=== PATIENT | male | born 1960 | race Caucasian/White ===

== ENCOUNTER 2020-04-07 08:03 | Emergency (ER) | payer BC ==
[~2020-04-07] VITALS: Ht 185.4 cm; Wt 102.5 kg
--- OUTSIDE RECORDS SUMMARY | 2020-04-07 08:10 | XMS REPORT | Continuity of Care Document ---
Author Author [email or web address], LANDRY Allen Organization [email or web address] Address Unknown Phone Unavailable Care Team Providers Care Returned Goods Inspector Name Role Phone [employer] Unavailable Un available Problems Problem Status Onset Date Classification Date Reported Comments Source Calculus of kidney 12/24/2017 07/06/2018 [facility] DX: CALCULUS OF KIDNEY Active 12/11/2017 [facility] KIDNEY STONE, ACQUIRED HYDRONEPHROSIS W/ Active 11/29/2017 [facility] ABD PAIN Active 11/28/2017 [facility] KIDNEY STONE Active 11/28/2017 [facility] Small kidney, unilateral 07/06/2018 [facility] Hypertensive disorder, systemic arterial (disorder) Resolved Problem 07/24/2018 [facility] Simple obesity (disorder) Acti ve Problem 06/2018 [facility] Active [facility] HYDRONEPHROSIS WITH URETEROPELVIC JUNCTI Active [facility] ACUTE KIDNEY FAILURE, UNSPECIFIED Active [facility] Medications Medication Details Route Status Patient Instructions Ordering Provider Order Date Source Ketorolac Tromethamine 10 MG Oral Tablet 10 mg = 1 tab, PO, Q6H, X 5 day, # 20 tab, 0 Refill(s), Pharmacy: [facility]/pharmacy #[id number] No Longer Active 12/03/2017 [facility] Ketorolac Tromethamine 10 MG Oral Tablet 10 mg = 1 tab, PO, Q6H, X 5 day, # 20 tab, 0 Refill(s), Pharmacy: [facility]/pharmacy #[id number] Active 11/30/2017 [facility] tamsulosin 0.4 mg oral capsule 0.4 mg = 1 cap, PO, Daily, # 30 cap, 0 Refill(s), Pharmacy: [facility]/pharmacy #[id number] Active 11/30/2017 [facility] ketOROLAC 15 mg/mL injectable solution 4 days. No Longer Active 11/29/2017 [facility] Zofran Notes: (Same as: Zofran) No Longer Active 11/29/2017 [facility] Flomax Notes: (Same As: Flomax ) "Do Not Crush" No Longer Active 11/29/2017 [facility] Sodium Chloride 0.9% IV 1,000 mL 1,000 mL, Rate: 150 ml/hr, Infuse over: 6.7 hr, Route: IV, Dosing Weight 108.636 kg, Total Volume: 1,000, Start date: 11/29/17 1:23:00 CDT, Duration: 30 day, Stop date: 12/29/17 1:22:00 CDT, 2.38, m2 No Longe r Active 11/29/2017 [facility] Saline Flush 0.9% Notes: (Same as: BD Posiflush) No Longer Active 11/29/2017 [facility] Acetaminophen 325 MG / Hydrocodone Awais trate 5 MG Oral Tablet [[place] 5/325] Notes: (Same as: [place] 325/5) Do not ex ceed 4gm/day of acetaminophen. No Longer Activ e 11/29/2017 [facility] Morphine Notes: (Same as:MORPh ine Sulfate) Inactive 11/29/2017 [facility] Morphine 4 mg, Route: IVP, ONC E, Dosing Weight 109.091, kg, Priority: STAT, Start date: 11/28/17 23:00:00 CDT, Stop date: 11/28/17 23:00:00 CDT Inactive 11/29/2017 [facility] atorvastatin 20 mg oral tablet 20 mg = 1 tab, PO, Daily, 0 Refill(s) Active 11/29/2017 [facility] Sodium Chloride 0.9% (Bolus) IV 1,000 mL, 1000 ml/hr, Infuse Over: 1 hr, Route: IV, 1,000, Drug form: INJ, ONCE, Priority: STAT, Dosing Weight 109.091 kg, Start date: 11/28/17 19:37:00 CDT, Stop date: 11/28/17 19:37:00 CDT Inactive 11/29/2017 [facility] Saline Flush 0.9% Notes: (Same as: BD Posiflush) No Longer Active 11/29/2017 [facility] Morphine Notes: (Same as:MORPh ine Sulfate) Inactive 11/29/2017 [facility] Ondansetron Notes: (Same as: Prisca more) MEDICATION WASTE Product Size: 4 mg Product Wasted: ___ mg Inactive 11/29/2017 [facility] Ramipril 5 mg, PO, QPM, 0 Refi ll(s) Active 11/28/2017 [facility] Allergies, Adverse Reactions, Alerts No Known Medication Allergies Immunizations No Data Provided for This Section Results Order Name Results Value Reference Range Date Interpretation Comments Source URINE AND STOOL POC UA Color Yellow *NA* (01/04/18 2:02 PM) Yellow 01/04/2018 [facility] URINE AND STOOL POC UA Turbidity Clear *NA* (01/04/18 2:02 PM) Clear 01/04/2018 [facility] URINE AND STOOL POC UA SG 1.025 <=1.030 01/04/2018 [facility] URINE AND STOOL POC UA pH 5.5 5.0 - 8.0 01/04/2018 [facility] URINE AND STOOL POC UA Ket Negative mg/dL Negative mg/dL 01/04/2018 [facility] URINE AND STOOL POC UA Bili Negative *NA* (01/04/18 2:02 PM) Negative 01/04/2018 [facility] URINE AND STOOL POC UA Bld Trace *NA* (01/04/18 2:02 PM) Negative 01/04/2018 [facility] URINE AND STOOL POC UA Uro 0.2 0.1 - 1.0 01/04/2018 [facility] URINE AND STOOL POC UA Nit Negative *NA* (01/04/18 2:02 PM) Negative 01/04/2018 [facility] URINE AND STOOL POC UA LeukEst Small *ABN* (01/04/18 2:02 PM) Negative 01/04/2018 [facility] URINE AND STOOL POC UA Prot Negative mg/dL Negative mg/dL 01/04/2018 [facility] URINE AND STOOL POC UA Glu Negative mg/dL Negative mg/dL 01/04/2018 [facility] ELECTROLYTES AGAP 8.8 10.0 - 20.0 11/29/2017 [facility] ELECTROLYTES eGFR 62 11/29/2017 Result Comment: The eGFR is calculated using the CKD-EPI formula. In most young, healthy individuals the eGFR will be >90 mL/min/1.73m2. The eGFR declines with age. An eGFR of 60-89 may be normal in some populations, particularly the elderly, for whom the CKD-EPI formula has not been extensively validated. Use of the eGFR is not recommended in the following populations:

Individuals with unstable creatinine concentrations, including patients and those with serious co-morbid conditions.

Patients with extremes in muscle mass or diet.

The data above are obtained from the National Kidney Disease Education Program (NKDEP) which additionally recommends that when the eGFR is used in patients with extremes of body mass index for purposes of drug dosing, the eGFR should be multiplied by the estimated BMI. [facility] ELECTROLYTES Glucose Lvl 109 70 - 99 11/29/2017 [facility] ELECTROLYTES Chloride Lvl 105 95 - 109 11/29/2017 [facility] ELECTROLYTES Potassium Lvl 3.8 3.5 - 5.1 11/29/2017 [facility] ELECTROLYTES Creatinine Lvl 1.2 6 0.50 - 1.40 11/29/2017 [facility] ELECTROLYTES BUN 15 7 - 22 11/29/2017 [facility] ELECTROLYTES Sodium Lvl 138 135 - 145 11/29/2017 [facility] ELECTROLYTES Calcium Lvl 8.3 8.5 - 10.5 11/29/2017 [facility] ELECTROLYTES CO2 28 24 - 32 11/29/2017 [facility] Lymphocytes 10.4 20.0 - 40.0 11/29/2017 [facility] HEMATOLOGY Segs 79.8 45.0 - 75.0 11/29/2017 [facility] HEMATOLOGY Eosinophils 0.5 0.0 - 4.0 11/29/2017 [facility] Monocytes 9.0 2.0 - 12.0 11/29/2017 [facility] Monocytes # 0.9 0.0 - 0.8 11/29/2017 [facility] Lymphocytes # 1.0 1.0 - 5.5 11/29/2017 [facility] Segs-Bands # 8.0 1.5 - 8.1 11/29/2017 [facility] HEMATOLOGY Basophils 0.3 0.0 - 1.0 11/29/2017 [facility] Eosinophils # 0.1 0.0 - 0.5 11/29/2017 [facility] MCH 31.1 27.0 - 31.0 11/29/2017 [facility] RDW 13.8 11.5 - 14.5 11/29/2017 [facility] MCHC 34.7 32.0 - 36.0 11/29/2017 [facility] MPV 8.0 7.4 - 10.4 11/29/2017 [facility] Platelet 204 133 - 450 11/29/2017 [facility] RBC 4.46 4.70 - 6.10 11/29/2017 [facility] HEMATOLOGY MCV 89.4 80.0 - 94.0 11/29/2017 [facility] HEMATOLOGY Hct 39.9 42.0 - 54.0 11/29/2017 [facility] HEMATOLOGY Hgb 13.9 14.0 - 18.0 11/29/2017 [facility] HEMATOLOGY WBC 10.1 3.7 - 10.4 11/29/2017 [facility] URINE AND STOOL UA WBC <1 0 - 5 11/29/2017 [facility] URINE AND STOOL UA RBC 1 0 - 2 11/29/2017 [facility] URINE AND STOOL UA Leuk Est Negative (11/28/17 8:12 PM) Negative 11/29/2017 [facility] URINE AND STOOL UA Urobilinogen <=1.0 mg/dL 0.1 - 1.0 11/29/2017 [facility] URINE AND STOOL UA Sq Epi None Seen 11/29/2017 [facility] URINE AND STOOL UA Color Yellow *NA* (11/28/17 8:12 PM) Yellow 11/29/2017 [facility] URINE AND STOOL UA Glucose Negative mg/dL Negative mg/dL 11/29/2017 [facility] URINE AND STOOL UA Blood Negative (11/28/17 8:12 PM) Negative 11/29/2017 [facility] URINE AND STOOL UA Nitrite Negative (11/28/17 8:12 PM) Negative 11/29/2017 [facility] URINE AND STOOL UA Turbidity Clear (11/28/17 8:12 PM) Clear 11/29/2017 [facility] URINE AND STOOL UA Spec Grav 1.026 <=1.030 11/29/2017 [facility] URINE AND STOOL UA pH 5.0 5.0 - 8.0 11/29/2017 [facility] URINE AND STOOL UA Protein Negative mg/dL Negative mg/dL 11/29/2017 [facility] URINE AND STOOL UA Ketones Negative mg/dL Negative mg/dL 11/29/2017 [facility] URINE AND STOOL UA Bili Negative *NA* (11/28/17 8:12 PM) Negative 11/29/2017 [facility] CHEM PANEL Lipase Lvl 114 73 - 393 11/29/2017 [facility] ELECTROLYTES AGAP 13.2 10.0 - 20.0 11/29/2017 [facility] ELECTROLYTES B/C Ratio 10 6 - 25 11/29/2017 [facility] ELECTROLYTES Globulin 3.9 2.7 - 4.2 11/29/2017 [facility] ELECTROLYTES A/G Ratio 1.1 0.7 - 1.6 11/29/2017 [facility] ELECTROLYTES eGFR 49 11/29/2017 Result Comment: The eGFR is calculated using the CKD-EPI formula. In most young, healthy individuals the eGFR will be >90 mL/min/1.73m2. The eGFR declines with age. An eGFR of 60-89 may be normal in some populations, particularly the elderly, for whom the CKD-EPI formula has not been extensively validated. Use of the eGFR is not recommended in the following populations:

Individuals with unstable creatinine concentrations, including patients and those with serious co-morbid conditions.

Patients with extremes in muscle mass or diet.

The data above are obtained from the National Kidney Disease Education Program (NKDEP) which additionally recommends that when the eGFR is used in patients with extremes of body mass index for purposes of drug dosing, the eGFR should be multiplied by the estimated BMI. [facility] ELECTROLYTES Bili Total 0.5 0.2 - 1.3 11/29/2017 [facility] ELECTROLYTES Total Protein 8.1 6.4 - 8.4 11/29/2017 [facility] ELECTROLYTES Albumin Lvl 4.2 3.5 - 5.0 11/29/2017 [facility] ELECTROLYTES Sodium Lvl 137 135 - 145 11/29/2017 [facility] ELECTROLYTES Potassium Lvl 4.2 3.5 - 5.1 11/29/2017 [facility] ELECTROLYTES Alk Phos 58 39 - 136 11/29/2017 [facility] ELECTROLYTES Creatinine Lvl 1.5 4 0.50 - 1.40 11/29/2017 [facility] ELECTROLYTES ALT 35 0 - 65 11/29/2017 [facility] ELECTROLYTES AST 23 0 - 37 11/29/2017 [facility] ELECTROLYTES CO2 25 24 - 32 11/29/2017 [facility] ELECTROLYTES Calcium Lvl 8.9 8.5 - 10.5 11/29/2017 [facility] ELECTROLYTES Chloride Lvl 103 95 - 109 11/29/2017 [facility] ELECTROLYTES BUN 16 7 - 22 11/29/2017 [facility] ELECTROLYTES Glucose Lvl 108 70 - 99 11/29/2017 [facility] HEMATOLOGY RBC 4.99 4.70 - 6.10 11/29/2017 [facility] HEMATOLOGY Hgb 15.4 14.0 - 18.0 11/29/2017 [facility] HEMATOLOGY Hct 44.8 42.0 - 54.0 11/29/2017 [facility] MCV 89.9 80.0 - 94.0 11/29/2017 [facility] MPV 8.0 7.4 - 10.4 11/29/2017 [facility] MCHC 34.4 32.0 - 36.0 11/29/2017 [facility] Platelet 230 133 - 450 11/29/2017 [facility] RDW 13.8 11.5 - 14.5 11/29/2017 [facility] MCH 30.9 27.0 - 31.0 11/29/2017 [facility] WBC 13.1 3.7 - 10.4 11/29/2017 [facility] Basophils 0.6 0.0 - 1.0 11/29/2017 [facility] Basophils # 0.1 0.0 - 0.2 11/29/2017 [facility] Lymphocytes # 1.0 1.0 - 5.5 11/29/2017 [facility] Segs-Bands # 11.1 1.5 - 8.1 11/29/2017 [facility] Monocytes # 0.9 0.0 - 0.8 11/29/2017 [facility] Monocytes 6.8 2.0 - 12.0 11/29/2017 [facility] Lymphocytes 7.6 20.0 - 40.0 11/29/2017 [facility] Segs 85.0 45.0 - 75.0 11/29/2017 [facility] Pathology Reports No Data Provided for This Section Diagnostic Reports Report Value Date Source Retroperitoneal Complete US Amaury puckett Name: LANDRY COLES : 1960; Age: 57 years Male MR: [id number] Study: Retroperitoneal Complete US 12/17/2017 8:58 AM CDT Clinical Indication: Left flank pain on November 28, 2017. History of left renal stone. COMPARISON: Ultrasound April 02, 2012. CAT scan November 28, 2017. TECHNIQUE: Multiple longitudinal and transverse real time sonographic images of the kidneys and urinary bladder are obtained. FINDINGS: KIDNEY: The right kidney measures 11.6 x 6.1 x 6.7 cm. The renal cortical thickness measures 1.3 cm. The left kidney measures 13.5 x 6.2 x 5.8 cm. The renal cortical thickness measures 2.1 cm. The kidneys are normal in size, shape, contour, and position. The corticomedullary differentiation is maintained. There is no hydronephrosis. There is no nephrolithiasis. There are no abnormal perinephric collections. BLADDER: Scanning through the pelvis reveals the bladder to be partially distended with anechoic urine. AORTA AND IVC: The visualized portions appear unremarkable. The proximal common iliac arteries are obscured by bowel gas. ASCITES: No ascites noted. IMPRESSION: Asymmetrically smaller right kidney. No acute abnormality. SL: [id number] 12/17/2017 [facility] Renal Stone CT CT SCAN OF THE ABDOMEN [<AND PELVIS>] WITHOUT CONTRAST. HX: Clinical Indication: Abdominal pain, acute - L flank pain; . Comparison: None Technique: Helical CT images were obtained from the domes the diaphragms to the symphysis pubis without the administration of oral or intravenous contrast. The lack of IV contrast lowers the sensitivity for diagnostic evaluation. ABDOMEN AND PELVIS: The lung bases are clear. The heart is normal in size. Grossly normal gallbladder. Diffuse fatty liver infiltration. The unenhanced spleen, pancreas, and adrenals are normal in appearance. Grossly normal appendix. The gastrointestinal structures are unremarkable. No abdominal masses, adenopathy, ascites, or fluid collections are seen. A 6.3 mm distal left ureteral calculus near the UVJ is present causing moderate hydroureter, hydronephrosis and extensive perinephric stranding. No definite renal calculi detected. Grossly normal-appearing right kidney. IMPRESSION: 1. A 6.3 mm distal left ureteral calculu s near the UVJ is present causing moderate hydroureter, hydronephrosis and extensive perinephric stranding. 2. Grossly normal appendix. 3. Diffuse fatty liver infiltration. SL: [id number] 11/28/2017 [facility] Consultation Notes No Data Provided for This Section Discharge Summaries No Data Provided for This Section History and Physicals No Data Provided for This Section Vital Signs Vital Sign Value Date Comments Source Systolic (mm Hg) 119 01/04/2018 [facility] Diastolic (mm Hg) 80 01/04/2018 [facility] BMI Calculated 30.95 01/04/2018 [facility] Weight 106.42 01/04/2018 [facility] Height 185.42 cm 01/04/2018 [facility] Heart Rate 75 01/04/2018 [facility] Systolic (mm Hg) 142 11/30/2017 [facility] Diastolic (mm Hg) 87 11/30/2017 [facility] Heart Rate 65 11/30/2017 [facility] Temperature Oral (F) 97.7 F 11/30/2017 [facility] Systolic (mm Hg) 159 11/30/2017 [facility] Diastolic (mm Hg) 98 11/30/2017 [facility] Heart Rate 72 11/30/2017 [facility] Temperature Oral (F) 96.4 F 11/30/2017 [facility] Systolic (mm Hg) 111 11/30/2017 [facility] Diastolic (mm Hg) 67 11/30/2017 [facility] Temperature Oral (F) 97.4 F 11/30/2017 [facility] Heart Rate 57 11/30/2017 [facility] Respitory Rate 18 11/29/2017 [facility] Respitory Rate 18 11/29/2017 [facility] Respitory Rate 18 11/29/2017 [facility] BMI Calculated 31.6 11/29/2017 [facility] Weight 108.636 11/29/2017 [facility] Height 185.42 cm 11/29/2017 [facility] BMI Calculated 31.73 11/29/2017 [facility] Weight 109.091 11/29/2017 [facility] Height 185.42 cm 11/29/2017 [facility] Weight 108.352 11/28/2017 [facility] BMI Calculated 31.52 11/28/2017 [facility] Height 185.42 cm 11/28/2017 [facility] Temperature Oral (F) 99.0 F 11/28/2017 [facility] Heart Rate 107 11/28/2017 [facility] Systolic (mm Hg) 140 11/28/2017 [facility] Diastolic (mm Hg) 79 11/28/2017 [facility] Encounters Location Location Details Encounter Type Encounter Number Reason For Visit Attending Provider ADM Date DC Date Status Source Outpatient [id number] EVIE PETERSON 11/28/2017 [facility] [place] Outpatient [id number] Evie Peterson 11/28/2017 11/29/2017 [facility] Inpatient [id number] Megan Nwoha 11/29/2017 11/30/2017 [facility] Outpatient [id number] Pricila [facility] 12/17/2017 12/18/2017 [facility] Outpatient [id number] PRICILA [facility] 01/04/2018 [facility] Outpatient [id number] Pricila Ianikki 01/04/2018 01/05/2018 [facility] Procedures Procedure Code Date Perfomer Comments Source Appendectomy [id number] [facility] Assessment and Plan Assessment and Plan Date Source Extracted from:Title: Clinical Document Author: Pricila Salazar MD Date: 11/30/17 Progress Daily [facility] Completed: Nov, 07:56 by Pricila Salazar MD RM: 151 - 2W, SE C1A LANDRY COLES 57y (: 1960) M Attending: Megan Mcmillan MD Service: Internal Medicine Reason for Admission: KIDNEY STONE, ACQUIRED HYDRONEPHROSIS W/URTERPELVIC ALEX Working DRG: Code status: None Specified=FULL CODE Current diet: Isolation: No Isolation/Standard Precautions Allergies: NKDA SUBJECTIVE no further pain most of the day yesterday and overnight has been straining urine but no stones OBJECTIVE General: NAD, AAO Abdomen: Soft, nontender, nondistended ASSESSMENT and EXAM distal left uvj stone symptoms controlled, resolved PLAN and TREATMENT he may have passed the stone ok to discharge for continued trial of passage with pain meds, antiemetic rx in chart DIAGNOSES and PROBLEMS Ready for Discharge (Yes/No)? Duffy still necessary (Yes/No): Line still necessary (Yes/No): (no lab data in past 24 hours) Vitals Tmp(F) Pulse BP RR SpO2 FIO2 11/30 04:06 97.4 57 111/67 - - 95 --- 11/30 01:02 98.4 75 138/79 - - 97 --- 11/29 15:20 99.2 69 143/82 1 8 96 --- 11/29 11:14 98.4 68 147/93 1 8 100 --- 11/29 07:58 98.4 68 125/71 1 8 95 --- 24 Hr Tmax: 99.2F (37.33c) at 11/29 15:2 0 Vital Signs are the last 5 in the past 48 hours. Date Wt(kg) Wt(lb) Ht(cm) Ht(in) Method 11/29 108.64 239.00 185.42 73.00 Measured 11/28 (initial) 109.09 240.00 Estimated 11/28 185.42 73.00 Stated I&O Record In Out Bal 11/29 24hr Tot 1163 650 513 11/28 24hr Tot 1011 0 1011 Medications (7) Active Scheduled Meds (2): 11/29/17 ketOROLAC (ketOROLAC 15 mg/mL i njectable solution) 15 mg IVP Q6Hnow 11/29/17 tamsulosin (Flomax) 0.4 mg PO D aily Unscheduled Meds: None PRN Meds (3): 11/29/17 acetaminophen-hydrocodone (Norc o 5/325 oral tablet) 1 tab PO Q4H 11/29/17 ondansetron (Zofran) 4 mg PO Q6 H 11/29/17 sodium chloride (Saline Flush 0 .9%) 10 ml IVP PRN One Time Meds (1): 11/28/17 (Completed) morphine Sulfate 4 mg IVP ONCE Continuous Infusions (1): 11/29/17 Sodium Chloride 0.9% IV 1,000 m L 1,000 mL 150 ml/hr Extracted from:Title: Clinical Document Author: Chepe Horton MD Date: 11/29/17 full H&P dictated, #[id number] date/time: 11/29/2017 01:23 11/30/2017 [facility] Plan of Care No Data Provided for This Section Social History Social History Date Source Social History TypeResponse Smoking Status Current some day smoker; Exposure to Tobacco Smoke Self; Cigarette Smoking Last 365 Days Yes; Reg Smoking Cessation Counseling No entered on: 01/04/18 01/04/2018 [facility] Social History TypeResponse Smoking Status Current some day smoker; Exposure to Tobacco Smoke Self; Cigarette Smoking Last 365 Days Yes; Reg Smoking Cessation Counseling No entered on: 01/04/18 01/04/2018 [facility] Family History No Data Provided for This Section Advance Directives No Data Provided for This Section Functional Status No Data Provided for This Section
--- NOTE | 2020-04-07 08:20 | NUR ---
DR. COLEMAN HAS SPOKEN WITH DR. Drake CHEUNG REGARDING PLAN OF CARE. HE IS SENDING HIM JORDAN WITH BACTRIM DS / DOXYCYCLINE AND HE IS TO FOLLOW UP WITH HAND SURGEON. DR. HERRERA
--- NOTE | 2020-04-07 08:21 | Emergency Department Note ---
History of Present Illnes History of Present Illness Chief Complaint: Extremity Trauma/Pain History of Present Illness This is a 59 year old male PATIENT SENT OVER BY DR. CHEUNG FOR EVALUATION AND ADMIT FOR CELLULITIS/ABSCESS X 6 DAYS AGO NOTED RIGHT HAND PAIN, SWELLING. HE WAS STARTED ON DOXYCYCLINE BY URGENT CARE, F/U WITH JONATAN WHO DID CT SCAN RIGHT YESTERDAY WHICH SHOWED ? 2X3 CM ABSCESS. HE STATES IT IS SO MUCH BETTER TODAY. Historian: Patient Arrival Mode: Car Additional Treatment CHANGE MANAGEMENT MANAGER: NONE Crown Presser Required: No Onset (how long ago): day(s) (6) Location: RIGHT HAND Quality: PAIN Radiation: Reports non-radiation Severity: moderate Onset quality: gradual Timing of current episode: constant Progression: improving Chronicity: new Context: Denies recent illness Relieving factors: none Exacerbating factors: none Associated symptoms: Reports denies other symptoms Past Medical/Family History Physician Review I have reviewed the patient's past medical and family history. Any updates have been documented here. Past Medical History Recent Fever: No Clinical Suspicion of Infectio: No New/Unexplained Change in Ment: No Past Medical History: Hypertension, Hyperlipedemia Past Surgical History: Appendectomy Other Surgery: RIGHT KNEE, BONE TUMOR REMOVED Social History Smoking Cessation: Never Smoker Counseling Performed: No Alcohol Use: None Any Illegal Drug Use: No TB Exposure/Symptoms: No Physically hurt or threatened: No Family History Family history of heart diseas: No Other Any Pre-Existing Lines (PICC,: No Review of Systems Review of Systems Constitutional: Reports no symptoms EENTM: Reports no symptoms Cardiovascular: Reports no symptoms Respiratory: Reports no symptoms Gastrointestinal: Reports no symptoms Genitourinary: Reports no symptoms Musculoskeletal: Reports as per HPI Integumentary: Reports no symptoms Neurological: Reports no symptoms Psychological: Reports no symptoms Endocrine: Reports no symptoms Hematological/Lymphatic: Reports no symptoms Physical Exam Related Data Allergies: Coded Allergies: No Known Allergies (Unverified , 04/07/20) Triage Vital Signs Vital Signs Date Time Temp Pulse Resp B/P (MAP) Pulse Ox O2 Delivery O2 Flow Rate FiO2 04/07/20 08:08 97.8 66 18 166/90 97 Room Air Vital signs reviewed: Yes Physical Exam CONSTITUTIONAL Constitutional: Present well-developed, Present well-nourished HENT HENT: Present normocephalic, Present atraumatic, Present oropharynx clear/moist, Present nose normal HENT L/R: Present left ext ear normal, Present right ext ear normal EYES Eyes: Reports PERRL, Reports conjunctivae normal NECK Neck: Present ROM normal PULMONARY Pulmonary: Present effort normal, Present breath sounds normal CARDIOVASCULAR Cardiovascular: Present regular rhythm, Present heart sounds normal, Present capillary refill normal, Present normal rate GASTROINTESTINAL Abdominal: Present soft, Present nontender, Present bowel sounds normal GENITOURINARY Genitourinary: Present exam deferred SKIN Skin: Present warm, Present dry MUSCULOSKELETAL Musculoskeletal: Present ROM normal, Present other (MILD SWELLING OF DORSUM RIGHT HAND WITH NO INDURATION OR FLUCTUANCE AND ONLY MINIMAL TENDERNESS, FROM OF WRIST AND ALL JOINTS OF HAND) NEUROLOGICAL Neurological: Present alert, Present oriented x 3, Present no gross motor or sensory deficits PSYCHOLOGICAL Psychological: Present mood/affect normal, Present judgement normal Assessment & Plan Medical Decision Making MDM I SPOKE WITH DR TEQUILA CHEUNG (PCP) AT PT'S REQUEST - HE WAS WORRIED ABOUT CT BUT SAYS PT WAS IN SEVERE PAIN WITH DECR ROM OF JOINTS IN HAND 2 DAYS AGO - SINCE PT IS BETTER HE WANTS PT TO GO HOME, ADD BACTRIM AND CONTINUE DOXY FOR 1 MORE WEEK Reassessment Reassessment DC HOME, F/U PCP AND DR HERRERA, BACTRIM/DOXY DIRECTED, RTED PRN Assessment & Plan Final Impression: (1) Cellulitis of right hand Depart Disposition: HOME, SELF-CARE Last Vital Signs Date Time Temp Pulse Resp B/P (MAP) Pulse Ox O2 Delivery O2 Flow Rate FiO2 04/07/20 08:08 97.8 66 18 166/90 97 Room Air REBECCA COLEMAN MD Apr 07, 2020 08:21
== END 2020-04-07 08:28 | disposition home or self-care (01) ==
LOC: ER 08:08
DX: L03.113 Cellulitis of right upper limb (principal); I10 Essential (primary) hypertension; E78.5 Hyperlipidemia, unspecified
CPT/HCPCS: 99282